=== PATIENT | female | born 2000 | race Caucasian/White ===

== ENCOUNTER 2021-08-22 03:30 | Emergency (ER) | payer MEDICAID ==
[~2021-08-22] VITALS: Ht 162.6 cm; Wt 49.9 kg
--- NOTE | 2021-08-22 03:30 | NUR ---
PT BIB [facility], PREBOOK. TAKEN TO CHAIR
[2021-08-22 03:32] VITALS: BP 124/88
[2021-08-22 04:21] VITALS: BP 124/88
--- NOTE | 2021-08-22 04:23 | NUR ---
PATIENT [facility]. PATIENT EXAMINED BY DR. SANTOS. PATIENT MEDICALLY CLEARED AND RELEASED IN CUSTODY IN STABLE CONDITION. ORIGINAL PRE-BOOK FORM GIVEN TO OFFICER REBEKAH.
== END 2021-08-22 04:23 ==
LOC: MED 03:30
DX: F10.10 Alcohol abuse, uncomplicated (principal); Z02.89 Encounter for other administrative examinations; F17.200 Nicotine dependence, unspecified, uncomplicated; V89.2XXA Person injured in unspecified motor-vehicle accident, traffic, initial encounter; Y93.89 Activity, other specified; Y92.89 Other specified places as the place of occurrence of the external cause; Y99.8 Other external cause status
CPT/HCPCS: 99283